=== PATIENT | male | born 1945 | race Native Hawaiian/Other Pacific Islander ===

== ENCOUNTER 2019-06-30 05:34 | Outpatient (CLI) | payer MEDICARE ==
[~2019-06-30] VITALS: Ht 180.3 cm; Wt 108.9 kg
[2019-06-30] MEDS ORDERED: TRAM50TA2 PO (14:16)
[2019-06-30] MEDS ORDERED: ASPI-586 PO (14:16)
[2019-06-30] MEDS ORDERED: ALLO300T2 PO (14:16)
[2019-06-30] MEDS ORDERED: RANI-515 PO (14:16)
[2019-06-30] MEDS ORDERED: LISI10TA2 PO (14:16)
[2019-06-30] MEDS ORDERED: L. A1CAP12 PO (14:16)
[2019-06-30] MEDS ORDERED: METO-333 PO (14:16)
[2019-06-30] MEDS ORDERED: WARF6TAB49 PO (14:16)
[2019-06-30] MEDS ORDERED: FURO40TA4 PO (14:16)
== END 2019-06-30 14:16 | disposition home or self-care (01) ==
LOC: PREOP 05:34
PROVIDERS: ATTEND Orthopaedic Surgery Orthopaedic Trauma
DX: Z01.818 Encounter for other preprocedural examination (principal)